=== PATIENT | male | born 1960 | race Caucasian/White ===

== ENCOUNTER 2023-03-14 06:32 | Day surgery (SDC) | payer BC ==
[~2023-03-14 06:32] MED LIST: Lactated Ringers 1,000 ML IV SCH; Lidocaine 2% 5 ML SDV ONE; Ondansetron 4 MG/2 ML SDV ONE; Propofol 200 MG/20 ML SDV ONE; propofoL 50 ML ONE
[2023-03-14] MEDS ORDERED: fentaNYL 100 MCG/2 ML SDV ONE (06:43)
[2023-03-14] MEDS ORDERED: Metoclopramide 10 MG/2 ML SDV ONE (06:45)
[2023-03-14] MEDS ORDERED: Magnesium Sulfate (4.06 MEQ/ML) 5 GM/10 ML SDV ONE (07:30)
== END 2023-03-14 09:00 | disposition home or self-care (01) ==
LOC: MW.SDS 06:32
PROVIDERS: ATTEND Surgery
DX: D64.9 Anemia, unspecified (principal); D12.6 Benign neoplasm of colon, unspecified; K22.89 Other specified disease of esophagus; F51.04 Psychophysiologic insomnia; I10 Essential (primary) hypertension; I51.7 Cardiomegaly; E11.9 Type 2 diabetes mellitus without complications; E55.9 Vitamin D deficiency, unspecified; Z88.8 Allergy status to other drugs, medicaments and biological substances; Z98.84 Bariatric surgery status; Z98.0 Intestinal bypass and anastomosis status; Z79.85 Long-term (current) use of injectable non-insulin antidiabetic drugs; Z79.899 Other long term (current) drug therapy; Z79.1 Long term (current) use of non-steroidal anti-inflammatories (NSAID)
CPT/HCPCS: 43239; 45380; 82947; J2405; J2704; J3010; J3475; J7120; 00813; J2765; J3490

== ENCOUNTER 2025-04-20 00:49 | Emergency (ER) | payer BC ==
[2025-04-20 01:21] LABS: BASOPHILS ABSOLUTE AUTO 0.04 K/uL (0.00-0.20); BASOPHILS PERCENT AUTO 0.5 % (0.0-1.0); EOSINOPHILS ABSOLUTE AUTO 0.14 K/uL (0.00-0.45); EOSINOPHILS PERCENT AUTO 1.9 % (0.0-6.0); IMMATURE GRAN ABSOLUTE AUTO 0.01 K/uL (0.00-0.05); IMMATURE GRAN PERCENT AUTO 0.1 % (0.0-0.4); LYMPHOCYTES ABSOLUTE AUTO 1.45 K/uL (1.00-4.80); LYMPHOCYTES PERCENT AUTO 19.7 % (24.0-44.0); MEAN PLATELET VOLUME 10.7 fL (9.4-12.4); MONOCYTES ABSOLUTE AUTO 0.56 K/uL (0.00-0.80); MONOCYTES PERCENT AUTO 7.6 % (0.0-8.0); NEUTROPHILS ABSOLUTE AUTO 5.15 K/uL (1.80-7.70); NEUTROPHILS PERCENT AUTO 70.2 % (41.0-71.0); NRBC ABSOLUTE 0.00 K/uL (0.00-0.02); NRBC PERCENT 0.0 /100WBC (0.0-0.2); PLATELET COUNT,PLT 237 K/uL (150-400); RED BLOOD CELL COUNT 3.92 M/uL (4.52-5.90); WHITE BLOOD CELL COUNT,WBC 7.35 K/uL (3.9-11.3)
[2025-04-20] MEDS: Pantoprazole 80 MG in Sodium Chloride 0.9% 20 ML IVPUSH ONE (01:23)
[2025-04-20 01:29] LABS: INR 1.21 (0.86-1.11); PTT,PARTIAL THROMBOPLSTIN TIME 26.2 SEC (23.9-30.7)
[2025-04-20 01:44] LABS: A/G RATIO 1.1 (0.9-1.6); ALANINE AMINOTRANSFERASE,ALT 22.0 IU/L (14-63); ASPARTATE AMNIOTRANSFERASE,AST 14.0 IU/L (15-37); BILIRUBIN TOTAL 0.6 mg/dL (0.2-1.0); BLOOD UREA NITROGEN,BUN 66.0 mg/dL (7.0-18.0); CARBON DIOXIDE,CO2 25.6 mmol/L (21.0-32.0); CHLORIDE,CL 108.0 mmol/L (98-107); CREATININE 1.4 mg/dL (0.8-1.3); EST CRCL DRUG DOSING (CG) 60.05 mL/min; ESTIMATED GFR 57.0 mL/min (>60); GLUCOSE RANDOM 201.0 mg/dL (74-106); POTASSIUM,K 5.1 mmol/L (3.5-5.1); PROTEIN TOTAL,TP 6.0 g/dL (6.4-8.2); SODIUM,NA 142.0 mmol/L (136-148)
[2025-04-20] MEDS: Iopamidol 755 Mg/ML 100 ML Bottle IVPUSH STA (01:58)
[2025-04-20 03:01] LABS: BASOPHILS ABSOLUTE AUTO 0.03 K/uL (0.00-0.20); BASOPHILS PERCENT AUTO 0.5 % (0.0-1.0); EOSINOPHILS ABSOLUTE AUTO 0.06 K/uL (0.00-0.45); EOSINOPHILS PERCENT AUTO 1.0 % (0.0-6.0); IMMATURE GRAN ABSOLUTE AUTO 0.01 K/uL (0.00-0.05); IMMATURE GRAN PERCENT AUTO 0.2 % (0.0-0.4); LYMPHOCYTES ABSOLUTE AUTO 0.83 K/uL (1.00-4.80); LYMPHOCYTES PERCENT AUTO 13.4 % (24.0-44.0); MEAN PLATELET VOLUME 10.2 fL (9.4-12.4); MONOCYTES ABSOLUTE AUTO 0.33 K/uL (0.00-0.80); MONOCYTES PERCENT AUTO 5.3 % (0.0-8.0); NEUTROPHILS ABSOLUTE AUTO 4.95 K/uL (1.80-7.70); NEUTROPHILS PERCENT AUTO 79.6 % (41.0-71.0); NRBC ABSOLUTE 0.00 K/uL (0.00-0.02); NRBC PERCENT 0.0 /100WBC (0.0-0.2); PLATELET COUNT,PLT 184 K/uL (150-400); RED BLOOD CELL COUNT 3.51 M/uL (4.52-5.90); WHITE BLOOD CELL COUNT,WBC 6.21 K/uL (3.9-11.3)
== END 2025-04-20 06:32 ==
LOC: MW.ED 00:49
DX: K92.2 Gastrointestinal hemorrhage, unspecified (principal); E11.9 Type 2 diabetes mellitus without complications; Z88.8 Allergy status to other drugs, medicaments and biological substances; Z79.899 Other long term (current) drug therapy; Z90.49 Acquired absence of other specified parts of digestive tract
CPT/HCPCS: 36415; 36430; 74177; 74177-26; 80053; 85025; 85610; 85730; 96374; 99284; 99285-25; J2470; P9016; P9017; Q9967

== ENCOUNTER 2025-04-27 10:11 | Emergency (ER) | payer BC ==
[2025-04-27] MEDS ORDERED: Sodium Chloride 0.9% 10 ML Syringe FLUSH PRN (10:45)
[2025-04-27] MEDS ORDERED: Sodium Chloride 0.9% 2.5 ML Syringe FLUSH PRN (10:45)
[2025-04-27 10:58] LABS: INR 1.13 (0.86-1.11)
[2025-04-27 11:02] LABS: A/G RATIO 1.1 (0.9-1.6); ALANINE AMINOTRANSFERASE,ALT 14.0 IU/L (14-63); ASPARTATE AMNIOTRANSFERASE,AST 14.0 IU/L (15-37); BILIRUBIN TOTAL 0.6 mg/dL (0.2-1.0); BLOOD UREA NITROGEN,BUN 31.0 mg/dL (7.0-18.0); CARBON DIOXIDE,CO2 22.3 mmol/L (21.0-32.0); CHLORIDE,CL 106.0 mmol/L (98-107); CREATININE 1.6 mg/dL (0.8-1.3); EST CRCL DRUG DOSING (CG) 52.54 mL/min; GLUCOSE RANDOM 287.0 mg/dL (74-106); POTASSIUM,K 4.6 mmol/L (3.5-5.1); PROTEIN TOTAL,TP 5.8 g/dL (6.4-8.2); SODIUM,NA 139.0 mmol/L (136-148)
[2025-04-27 11:03] LABS: ESTIMATED GFR 48.0 mL/min (>60)
[2025-04-27 11:24] LABS: BASOPHILS ABSOLUTE AUTO 0.03 K/uL (0.00-0.20); BASOPHILS PERCENT AUTO 0.3 % (0.0-1.0); EOSINOPHILS ABSOLUTE AUTO 0.04 K/uL (0.00-0.45); EOSINOPHILS PERCENT AUTO 0.4 % (0.0-6.0); IMMATURE GRAN ABSOLUTE AUTO 0.08 K/uL (0.00-0.05); IMMATURE GRAN PERCENT AUTO 0.8 % (0.0-0.4); LYMPHOCYTES ABSOLUTE AUTO 1.07 K/uL (1.00-4.80); LYMPHOCYTES PERCENT AUTO 11.1 % (24.0-44.0); MEAN PLATELET VOLUME 10.1 fL (9.4-12.4); MONOCYTES ABSOLUTE AUTO 0.57 K/uL (0.00-0.80); MONOCYTES PERCENT AUTO 5.9 % (0.0-8.0); NEUTROPHILS ABSOLUTE AUTO 7.87 K/uL (1.80-7.70); NEUTROPHILS PERCENT AUTO 81.5 % (41.0-71.0); NRBC ABSOLUTE 0.07 K/uL (0.00-0.02); NRBC PERCENT 0.7 /100WBC (0.0-0.2); PLATELET COUNT,PLT 212 K/uL (150-400); RED BLOOD CELL COUNT 1.84 M/uL (4.52-5.90); WHITE BLOOD CELL COUNT,WBC 9.66 K/uL (3.9-11.3)
[2025-04-27 11:54] LABS: APPEARANCE,URINE CLEAR; GLUCOSE,URINE 100 mg/dL (NEGATIVE); OCCULT BLOOD,URINE NEGATIVE (NEGATIVE)
[2025-04-27 12:07] LABS: EPITHELIAL CELLS,URINE FEW (NONE-FEW)
== END 2025-04-27 14:48 ==
LOC: MW.ED 10:11
DX: K92.2 Gastrointestinal hemorrhage, unspecified (principal); D64.9 Anemia, unspecified; R79.89 Other specified abnormal findings of blood chemistry; I10 Essential (primary) hypertension; E11.9 Type 2 diabetes mellitus without complications; Z88.6 Allergy status to analgesic agent; Z79.899 Other long term (current) drug therapy
CPT/HCPCS: 36415; 36430; 71045; 80053; 81001; 82947; 83690; 84484; 85025; 85610; 86850; 86900; 86901; 86920; 93005; 96360; 99285; J7030; P9016; 93010; 99284